=== PATIENT | male | born 1990 | race Two or more races ===

== ENCOUNTER 2017-11-14 01:11 | Emergency (ER) | payer OTHER ==
[~2017-11-14] VITALS: Ht 170.2 cm; Wt 86.2 kg
[2017-11-14 01:30] VITALS: BP 137/76
[2017-11-14] MEDS ORDERED: TUBERCULIN PPD 5 UNIT/0.1 ML ID ONE (02:30)
== END 2017-11-14 04:40 | disposition home or self-care (01) ==
LOC: ER 01:22
DX: A15.9 Respiratory tuberculosis unspecified (principal); R06.02 Shortness of breath
CPT/HCPCS: 71045